=== PATIENT | female | born 1995 | race African-American/Black ===

== ENCOUNTER → 2018-07-07 14:28 | Outpatient (CLI) | payer OTHER | END | disposition home or self-care (01) | LOC: EDBD 14:28 → LAB 14:28 | DX: K60.0 Acute anal fissure (principal); K92.1 Melena; K64.2 Third degree hemorrhoids; Z01.812 Encounter for preprocedural laboratory examination; K50.918 Crohn's disease, unspecified, with other complication; K50.012 Crohn's disease of small intestine with intestinal obstruction; K58.1 Irritable bowel syndrome with constipation; D50.8 Other iron deficiency anemias; D51.8 Other vitamin B12 deficiency anemias; I10 Essential (primary) hypertension; R97.0 Elevated carcinoembryonic antigen [CEA] ==

== ENCOUNTER 2018-07-12 16:54 | Outpatient (CLI) | payer OTHER | END 2018-07-12 17:00 | disposition home or self-care (01) | LOC: LAB 16:54 | DX: K58.1 Irritable bowel syndrome with constipation (principal); D51.1 Vitamin B12 deficiency anemia due to selective vitamin B12 malabsorption with proteinuria; D50.8 Other iron deficiency anemias ==

== ENCOUNTER 2018-07-14 11:03 | Day surgery (SDC) | payer OTHER | END 2018-07-14 17:30 | disposition home or self-care (01) | LOC: AMB-ENDOS 11:03 | DX: K64.8 Other hemorrhoids (principal); K64.1 Second degree hemorrhoids ==

== ENCOUNTER 2019-01-15 00:42 | Emergency (ER) | payer OTHER ==
[~2019-01-15] VITALS: Ht 160 cm; Wt 68.0 kg
[2019-01-15] MEDS ORDERED: ZOFRAN4 MG PO (06:05)
[2019-01-15] MEDS ORDERED: LEVSIN/SL0.125 MG SL (06:05)
== END 2019-01-15 06:23 | disposition home or self-care (01) ==
LOC: ER 00:42
DX: R10.84 Generalized abdominal pain (principal); K50.90 Crohn's disease, unspecified, without complications

== ENCOUNTER 2019-03-13 19:53 | Outpatient (CLI) | payer OTHER ==
[~2019-03-13 19:53] MED LIST: LEVSIN/SL0.125 MG SL; ZOFRAN4 MG PO
== END 2019-03-13 20:01 | disposition home or self-care (01) ==
LOC: LAB 19:53
DX: K50.012 Crohn's disease of small intestine with intestinal obstruction (principal)